=== PATIENT | male | born 2000 | race Caucasian/White ===

== ENCOUNTER 2025-02-22 18:47 | Emergency (ER) | payer BC ==
[2025-02-22] MEDS ORDERED: Aspirin 325 MG Tab.EC PO ONE (19:19)
[2025-02-22 19:25] LABS: BASOPHILS ABSOLUTE AUTO 0.0 K/mm3 (0.0-0.2); BASOPHILS PERCENT AUTO 0.5 % (0.0-1.0); EOSINOPHILS ABSOLUTE AUTO 0.1 K/mm3 (0.0-0.4); EOSINOPHILS PERCENT AUTO 1.5 % (0.0-6.0); IMMATURE GRAN ABSOLUTE AUTO 0.01 K/mm3 (0.00-0.05); IMMATURE GRAN PERCENT AUTO 0.2 % (0.0-0.4); LYMPHOCYTES ABSOLUTE AUTO 2.5 K/mm3 (1.0-4.8); LYMPHOCYTES PERCENT AUTO 41.7 % (24.0-44.0); MEAN PLATELET VOLUME 10.2 fl (9.4-12.4); MONOCYTES ABSOLUTE AUTO 0.4 K/mm3 (0.0-0.8); MONOCYTES PERCENT AUTO 7.3 % (0.0-8.0); NEUTROPHILS ABSOLUTE AUTO 2.9 K/mm3 (1.8-7.7); NEUTROPHILS PERCENT AUTO 48.8 % (41.0-71.0); NRBC ABSOLUTE 0.00 (0.00-0.02); NRBC PERCENT 0.0 % (0.0-0.2); PLATELET COUNT,PLT 176 K/mm3 (150-400); RED BLOOD CELL COUNT 5.15 M/mm3 (4.52-5.90); WHITE BLOOD CELL COUNT,WBC 6.02 K/mm3 (3.9-11.3)
[2025-02-22] MEDS: Sodium Chloride 0.9% 10 ML Syringe FLUSH PRN (19:33)
[2025-02-22 19:42] LABS: APPEARANCE,URINE CLEAR (Clear); GLUCOSE,URINE NEGATIVE (Negative); OCCULT BLOOD,URINE NEGATIVE (Negative)
[2025-02-22 19:51] LABS: EPITHELIAL CELLS,URINE 0-5 /hpf (0-5)
[2025-02-22 19:54] LABS: BUPRENORPHINE SCREEN,URINE NEGATIVE (CUTOFF=10); METHADONE SCREEN, URINE NEGATIVE (CUT0FF=200); METHAMPHETAMINES SCREEN, URINE NEGATIVE (CUTOFF=500); OXYCODONE SCREEN,URINE NEGATIVE (CUT0FF=100); THC SCREEN,URINE 20 NG/ML NEGATIVE (CUTOFF=50)
[2025-02-22 19:55] LABS: AMPHETAMINES SCREEN, URINE NEGATIVE (CUTOFF=500)
[2025-02-22 19:58] LABS: A/G RATIO 1.5 (1-2); ALANINE AMINOTRANSFERASE,ALT 31 U/L (16-63); ASPARTATE AMNIOTRANSFERASE,AST 23 U/L (15-37); BILIRUBIN TOTAL 1.9 mg/dL (0.2-1.0); BLOOD UREA NITROGEN,BUN 20 mg/dL (7-18); CARBON DIOXIDE,CO2 27 mEq/L (21-32); CHLORIDE,CL 104 mEq/L (98-107); CREATININE 1.3 mg/dL (0.7-1.3); EST CRCL DRUG DOSING (CG) 94.13 mL/min; ESTIMATED GFR 79 mL/min (>60); GLUCOSE RANDOM 82 mg/dL (70-99); POTASSIUM,K 3.4 mEq/L (3.5-5.1); PROTEIN TOTAL,TP 7.9 g/dl (6.4-8.2); SODIUM,NA 141 mEq/L (136-145)
[2025-02-22 20:04] LABS: TROPONIN I HIGH SENSITIVITY < 4 pg/mL (<=76)
== END 2025-02-22 22:18 | disposition home or self-care (01) ==
LOC: JD.ED 18:47
DX: R07.9 Chest pain, unspecified (principal); E87.6 Hypokalemia; E80.6 Other disorders of bilirubin metabolism; Z88.1 Allergy status to other antibiotic agents
CPT/HCPCS: 36415; 71045; 80053; 80306; 81001; 83605; 83690; 83735; 84484; 85025; 93005; 99285; A9270; 93010; 99283